=== PATIENT | male | born 1990 | race Caucasian/White ===

== ENCOUNTER 2019-05-07 17:36 | Emergency (ER) | payer OTHER ==
[~2019-05-07] VITALS: Ht 182.9 cm; Wt 115.7 kg
[~2019-05-07 17:36] MED LIST: VENTOLIN HFA INH8 GM; VICODIN ES TAB1 EACH
[2019-05-07] MEDS ORDERED: LIPITOR10 MG PO (17:56)
[2019-05-07] MEDS ORDERED: PROAIR HFA8.5 GM (17:56)
[2019-05-07] MEDS ORDERED: CYCLOGYL15 ML TOP (18:20)
[2019-05-07] MEDS ORDERED: PRED FORTE5 ML TOP (18:20)
[2019-05-07 18:27] VITALS: BP 141/96
== END 2019-05-07 18:28 | disposition home or self-care (01) ==
LOC: M.ERS 17:36
DX: H20.9 Unspecified iridocyclitis (principal); J45.909 Unspecified asthma, uncomplicated; Z88.0 Allergy status to penicillin